=== PATIENT | female | born 1960 | race Caucasian/White ===

== ENCOUNTER 2021-06-02 21:32 | Emergency (ER) | payer OTHER, SELFPAY ==
[2021-06-02 21:47] VITALS: BP 166/92; PULSE 85; RESP 18; TEMP 36.4; O2SAT 99
[2021-06-02 22:47] LABS: Basophils Absolute Auto 0.1 K/mm3 (0.0-0.1); Basophils Percent Auto 0.5 % (0.2-1.2); Eosinophils Absolute Auto 0.3 K/mm3 (0-0.3); Eosinophils Percent Auto 2.5 % (0-4.4); Hematocrit 39.8 % (37.0-47.0); Immature Granulocyte Absolute 0.09 K/mm3 (0.00-0.031); Immature Granulocyte Percent A 0.8 % (0-0.5); Lymphocytes Absolute Auto 3.53 K/mm3 (0.9-3.2); Lymphocytes Percent Auto 29.8 % (18.3-44.2); Mean Corpuscular HGB Conc 32.7 g/dl (32-36); Mean Corpuscular Hemoglobin 29.1 pg (26-34); Mean Corpuscular Volume 89.2 fl (80-100); Mean Platelet Volume 8.5 fl (7.4-10.4); Monocytes Absolute Auto 0.8 K/mm3 (0.1-0.6); Monocytes Percent Auto 6.5 % (2.6-8.5); Neutrophils Absolute Auto 7.1 K/mm3 (1.3-6.7); Neutrophils Percent Auto 59.9 % (45.5-73.1); Platelet Count Result 322 k/mm3 (150-375); Red Blood Count 4.46 M/mm3 (4.2-5.4); Red Cell Distribution Width 12.5 % (11.5-14.5); White Blood Count 11.8 K/mm3 (4.5-10.0)
[2021-06-02 22:56] LABS: Alanine Aminotransferase 14 U/L (4-35); Albumin Level 4.1 g/dL (3.5-5.1); Alkaline Phosphatase 72 U/L (38-126); Anion Gap 7 mmol/L (8-16); Aspartate Amino Transferase 24 U/L (14-36); Bilirubin,Total 0.4 mg/dL (0.2-1.3); Blood Urea Nitrogen 16 mg/dL (7-17); Calcium 8.9 mg/dL (8.4-10.2); Carbon Dioxide 24 mmol/L (22-30); Chloride 109 mmol/L (98-107); Estimated CRCL calculation 61 ml/min; Estimated Glomerular Filt Rate 51; Glucose 103 mg/dL (65-110); Sodium 140 mmol/L (137-145)
[2021-06-02 23:05] LABS: NT Pro B Type Natriuretic Pept 188 pg/mL (5-100)
--- NOTE | 2021-06-02 23:45 | PC.NURSE ---
Pt to the intake desk and states I think im just going to go Let pt know that she is the next one to go back, she states thats ok, i just need to go lay down Pt ambulated to the exit with no difficulty
== END 2021-06-02 21:47 | disposition left against medical advice (07) ==
LOC: ANHED 23:52
PROVIDERS: Emergency Provider Emergency Medicine
DX: R60.9 Edema, unspecified (principal)
CPT/HCPCS: 36415; 80053; 83880; 85025; 99199

== ENCOUNTER 2022-12-12 09:16 | Inpatient (IN) | payer OTHER, SELFPAY ==
[2022-12-12] VITALS (21 sets, daily range): BP systolic 112–178; BP diastolic 53–87; PULSE 66–86; RESP 12–18; TEMP 36.3–36.8; O2SAT 95–100; BMI 41.5
--- NOTE | ~2022-12-12 | XR_ITS ---
EXAMINATION: XR chest 2V DATE: 12/12/2022 10:09 INDICATION: Chest pain. TECHNIQUE: Frontal and lateral views of the chest were obtained. COMPARISON: None. FINDINGS: The chest demonstrates clear lungs without pneumonia, pleural effusion, or pneumothorax. Th e heart size is normal. IMPRESSION: 1. No acute cardiopulmonary disease. Reviewed, dictated and finalized at location A. ON GRAPHICS DESIGNER
--- NOTE | ~2022-12-12 | CT_ITS ---
EXAMINATION: CT brain wo con DATE: 12/14/2022 12:24 INDICATION: Headache. TECHNIQUE: Computed tomography (CT) of the head was performed without intravenous contrast. The mA wa s adjusted according to patient size. Iterative reconstruction technique was employed. The dose-lengt h product was 605.33 mGy-cm. COMPARISON: None FINDINGS: There is no intracranial hemorrhage, acute infarction, or abnormal intracranial mass lesion . The ventricles are normal in size. The orbits are normal. There is mild mucosal thickening in the p aranasal sinuses. There is dependent fluid in the maxillary sinuses. The mastoid air cells are normal . IMPRESSION: 1. Normal brain. Reviewed, dictated and finalized at location A. ERATURE REGULATOR IMPRESSION: 1. Normal brain.
--- NOTE | ~2022-12-12 | CT_ITS ---
EXAMINATION: CTA chest DATE: 12/12/2022 10:46 INDICATION: Chest and back pain. TECHNIQUE: Computed tomographic angiography (CTA) of the chest was performed with 100 mL Omnipaque-35 0 intravenous contrast. Automated exposure control and iterative reconstruction technique were employ ed. The dose-length product was 1137.08 mGy-cm. Maximum intensity projection 3D-reconstructions of th e aorta and other arteries were constructed by the technologist on a separate workstation. COMPARISON: None. FINDINGS: The lungs demonstrate mild atelectasis. No pleural effusion. There are nodules in the thyro id measuring up to 4 mm, and a clinically significant. The heart size is normal. No pericardial effus ion. There is no pulmonary embolus. There is mild aortic atherosclerosis. Thoracic aorta is normal in caliber. No dissection. There is no pulmonary embolus. There is a 3.4 cm cyst in right kidney. There are gallstones in the gallbladder, which is normal in size. There is diffuse hepatic steatosis. Ther e is moderate cervical spondylosis and mild thoracic spondylosis. There are chronic fractures of the bilateral L3 pedicles. IMPRESSION: 1. Mild aortic atherosclerosis. No aneurysm or dissection. 2. Cholelithiasis. Reviewed, dictated and finalized at location A. RARY WRITER
--- NOTE | 2022-12-12 09:18 | ECG_ITS ---
Measurements Intervals [place] Rate: 79 P: 58 UT: 185 QRS: -43 QRSD: 89 T: 55 QT: 349 QTc: 401 Interpretive Statements SINUS RHYTHM LEFT AXIS DEVIATION INCOMPLETE RIGHT BUNDLE BRANCH BLOCK DELAYED PRECORDIAL R/S TRANSITION LOW QRS VOLTAGE IN PRECORDIAL LEADS BASELINE ARTIFACT- I, III, AVR, AVL, AVF BORDERLINE ECG NO PREVIOUS ECG AVAILABLE FOR COMPARISON Electronically Signed On 12-12-2022 14:32:40 LOW PRESSURE BOILER TENDER by Christopher Mckeon D.O.
--- NOTE | 2022-12-12 09:24 | ED.CHESTPAIN ---
HPI - Chest Pain General Chief Complaint: Chest Pain Stated Complaint: I feel like I am having a heart attack Time Seen by Provider: 12/12/22 09:18 History of Present Illness HPI narrative: Patient is a 62-year-old female who presents ER with concerns of having a heart attack. Reports over the last 3 days she has been having pain in her back and her chest. Today she began having pain between her shoulder blades that radiated up her back and into her jaw. It is bilateral. It is burning and aching. She reports worsening with exertion. She also has dyspnea with exertion. No chest pain at this time. No diaphoresis or nausea. No history of [place]. 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 She quit both for years ago. She denies any medical issues at this time. Related Data Home Medications Medication Instructions Recorded Confirmed No Home Medications 12/12/22 12/12/22 Allergies Allergy/AdvReac Type Severity Reaction Status Date / Time No Known Allergies Allergy Verified 12/12/22 09:25 [facility] Past Medical History Medical History (Updated 12/12/22 @ 13:24 by JORGE L Castro) Aortic atherosclerosis Mild, noted on CT on 12/12/2022. Cholelithiasis Noted on CT on 12/12/2022. Surgical History Surgical History (Updated 12/12/22 @ 16:25 by Nolan Mejia MD) No history of previous surgery Family History Family History (Updated 12/12/22 @ 14:00 by JORGE L Castro) Father Acute myocardial infarction Prostate carcinoma Hypertension Mother Hypertension Breast cancer Social History Social History Social History: Surrogate medical decision maker: Code status: Full code. Smoking status: Former smoker Tobacco type: cigarettes Second hand tobacco smoke exposure: No Substance use: former Substance use type: amphetamines Lack of Transportation: No Lack of Food: Never True Current Housing: I Have Housing Concerned About Future Housing: No Difficulty Paying Gas/Electric Bills: No Difficulty Paying for Meds: No Currently Unemployed: No Education: Decline to Answer Difficulty w/ Childcare or Family Care: No Gender identity (if verbalized by the patient): Female Sexual Orientation (if Verbalized by the Patient): Straight or Heterosexual Spiritual care concerns: No Agree to blood products: Yes Exam Narrative: GENERAL: Well-appearing, well-nourished, and in no acute distress. HEAD: Normocephalic, atraumatic. ENT: Mucous membranes moist. NECK: Supple. CHEST: Clear to auscultation. No respiratory distress. HEART: Regular rate and rhythm. No murmur heard. Normal peripheral pulses. ABDOMEN: Soft, nontender, nondistended. Back: No reproducible midline or paraspinal muscular tenderness to the T/L-spine. EXTREMITIES: Normal range of motion. No edema. SKIN: Warm, dry, no rash. NEURO: Alert and oriented x3. PSYCH: Normal mood and affect. Course Course Emergency Course: Patient informed of results. Discussed case with Dr. Burr with cardiology. Recommends CTA to rule out dissection prior to administration of heparin. Patient without dissection so heparin initiated. Admit to hospitalist service with cardiology consulting. Patient aware of diagnosis and treatment plan and the seriousness of her condition. Patient given nitroglycerin for discomfort. Accepted by Dr. Maloney. Vital Signs Vital signs: Vital Signs Temperature 97.4 F L 12/12/22 09:19 Pulse Rate 80 12/12/22 09:19 Respiratory Rate 18 12/12/22 09:19 Blood Pressure 178/81 H 12/12/22 09:19 Pulse Oximetry 95 12/12/22 09:19 Oxygen Delivery Room Air 12/12/22 09:19 Temperature 97.9 F 12/12/22 12:20 Pulse Rate 83 12/12/22 14:00 Respiratory Rate 16 12/12/22 12:20 Blood Pressure 132/53 L 12/12/22 12:20 Pulse Oximetry 100 12/12/22 12:20 Oxygen Delivery Room Air 12/12/22 09:57
[2022-12-12 09:41] LABS: Basophils Absolute Auto 0.1 K/mm3 (0.0-0.1); Basophils Percent Auto 0.5 % (0.2-1.2); Eosinophils Absolute Auto 0.4 K/mm3 (0-0.3); Eosinophils Percent Auto 3.2 % (0-4.4); Hematocrit 43.6 % (37.0-47.0); Hemoglobin 14.3 g/dL (12.0-15.0); Immature Granulocyte Absolute 0.08 K/mm3 (0.00-0.031); Immature Granulocyte Percent A 0.7 % (0-0.5); Lymphocytes Absolute Auto 2.42 K/mm3 (0.9-3.2); Lymphocytes Percent Auto 20.7 % (18.3-44.2); Mean Corpuscular HGB Conc 32.8 g/dl (32-36); Mean Corpuscular Hemoglobin 29.1 pg (26-34); Mean Corpuscular Volume 88.8 fl (80-100); Mean Platelet Volume 8.6 fl (7.4-10.4); Monocytes Absolute Auto 0.6 K/mm3 (0.1-0.6); Monocytes Percent Auto 5.5 % (2.6-8.5); Neutrophils Absolute Auto 8.1 K/mm3 (1.3-6.7); Neutrophils Percent Auto 69.4 % (45.5-73.1); Platelet Count Result 380 k/mm3 (150-375); Red Blood Count 4.91 M/mm3 (4.2-5.4); Red Cell Distribution Width 12.5 % (11.5-14.5); White Blood Count 11.7 K/mm3 (4.5-10.0)
[2022-12-12 09:52] LABS: Alanine Aminotransferase 24 U/L (6-35); Albumin Level 4.4 g/dL (3.5-5.1); Alkaline Phosphatase 80 U/L (38-126); Anion Gap 6 mmol/L (8-16); Aspartate Amino Transferase 30 U/L (14-36); Bilirubin,Total 0.6 mg/dL (0.2-1.3); Blood Urea Nitrogen 15 mg/dL (7-17); Calcium 9.2 mg/dL (8.4-10.2); Carbon Dioxide 27 mmol/L (22-30); Chloride 101 mmol/L (98-107); Estimated CRCL calculation 91 ml/min; Estimated Glomerular Filt Rate > 60; Glucose 116 mg/dL (65-110); Lipase 71 U/L (23-300); Potassium 3.8 mmol/L (3.4-5.0); Prothrombin Time 12.6 Seconds (11.1-14.7); Sodium 134 mmol/L (137-145)
[2022-12-12 09:53] LABS: Partial Thromboplastin Time 32.5 SECONDS (22.3-36.8)
[2022-12-12] MEDS: ASPIRIN 81 MG CHEWABLE TABLET 324 MG PO (09:54)
[2022-12-12 10:07] LABS: Troponin I 0.104 ng/mL (0.000-0.034)
--- NOTE | 2022-12-12 10:21 | ECG_ITS ---
Measurements Intervals [place] Rate: 69 P: 56 MT: 189 QRS: -13 QRSD: 88 T: 46 QT: 376 QTc: 405 Interpretive Statements SINUS RHYTHM RSR' IN V1 OR V2, PROBABLY NORMAL VARIANT DELAYED PRECORDIAL R/S TRANSITION LOW QRS VOLTAGE IN PRECORDIAL LEADS BORDERLINE ECG COMPARED TO ECG 12/12/2022 09:22:53 NO SIGNIFICANT CHANGES Electronically Signed On 12-16-2022 14:13:12 CUT OFF SAWYER by Christopher Mckeon D.O.
[2022-12-12] MEDS: NITROGLYCERIN SL 0.4 MG TABLET SUBLINGUAL (10:55)
[2022-12-12] MEDS: HEPARIN SODIUM 5,000 UNITS/ML VIAL 4000 UNITS IV PUSH ×2 (11:02→18:10)
[2022-12-12] MEDS: HEPARIN SOD/D5W 100 UNITS/ML 25,000 UNITS/250 ML BAG 9 UNITS IV CONT (11:03)
--- NOTE | 2022-12-12 12:11 | ADMGEN ---
This patient, Sherrie Mcknight, was admitted to IMU Room 214-01. Patient/family oriented to hospital policies and general routines including ID bracelet, bed and alarms, visiting hours, pain management, procedures, bathroom and other care routines, personal items, smoking policy, room service/diet, and visiting hours. Information on how to activate the Rapid Response Team has been discussed. Patient/Family are encouraged to report perceived risks to care and to ask questions if they do not understand what they are told or what they should do.
--- NOTE | 2022-12-12 12:45 | PM.IMHP ---
H&P: HPI History of Present Illness Date/Time: 12/12/22 12:45 Chief Complaint: ?I feel like I am having a heart attack.? Narrative: This is a 62-year-old female with GERD and history of methamphetamine user (clean for 4 years) who presented to the emergency department via private vehicle for evaluation of chest pain. Patient provides the following history. She endorses intermittent chest pain over the last several days and it seems to have gotten worse each day. She describes a punching pain in the chest radiating to the back and scapulae. It is worse with exertion and improved with rest. She also has shortness of breath with exertion but that has been a more long-term issue however has improved since she quit smoking last year. Prior to arrival she took 3 Advil without benefit. With further questioning she takes 600 mg of Advil several times a day and she has 3 years. She has occasional heartburn for which she takes Prilosec but she denies recent issues with that however a couple of times during the interview she mentioned having burning discomfort up into her esophagus and neck. Over the weekend she had 2 dark, malodorous stools which has never happened before. She denies abdominal pain though again a couple of times during the interview she indicated to me that she has had an occasional upset stomach. Blood pressure was 178/81 on arrival. EKG showed a sinus rhythm with left axis deviation, delayed precordial R/S transition, low QRS voltage in precordial leads and incomplete right bundle branch block. Her initial troponin was elevated 0.104, she was started on heparin drip, and she has been admitted to IMU for close observation and Cardiology consult. Review of Systems Review of Systems: Twelve systems were reviewed. No fever, chills, or sweats. She reports sinus congestion and headaches. Denies sick contacts. No history of cardiac disease. Denies paroxysmal nocturnal dyspnea, orthopnea, and lower extremity edema. No sensations of racing heart or palpitations. She admits to dyspnea on exertion and she feels that she probably has COPD though her breathing has gotten better since she quit smoking. She admits that she is not very active. No history of DVT or PE. Except as documented, all other systems were reviewed and are negative. [facility] Past Medical History Medical History Aortic atherosclerosis Mild, noted on CT on 12/12/2022. Cholelithiasis Noted on CT on 12/12/2022. Gastroesophageal reflux disease History of methamphetamine use Surgical History Surgical History (Updated 12/12/22 @ 20:27 by Jayna Limon PA-C) History of section Family History Family History Father Acute myocardial infarction Prostate carcinoma Hypertension Mother Hypertension Breast cancer Social History Social History (Updated 12/12/22 @ 20:29 by Jayna Limon PA-C) Social History: Surrogate medical decision maker: Kamran Ledezma, son. Code status: Full code. Smoking status: Former smoker Tobacco type: cigarettes Second hand tobacco smoke exposure: No Alcohol intake: never Substance use: former Substance use type: amphetamines Lack of Transportation: No Lack of Food: Never True Current Housing: I Have Housing Concerned About Future Housing: No Difficulty Paying Gas/Electric Bills: No Difficulty Paying for Meds: No Currently Unemployed: No Education: Decline to Answer Difficulty w/ Childcare or Family Care: No Additional living arrangements comments: . Lives alone in [place]. Has 4 children. Additional occupation/education comments: Retired. Spiritual care concerns: No Agree to blood products: Yes Meds Home Medications and Allergies Home Medications Medication Instructions Recorded Confirmed Type No Home Medications 12/12/22 12/12/22 History Allergies Allergy/AdvReac Type Severity Reaction Stat
[2022-12-12 13:42] LABS: Troponin I 0.228 ng/mL (0.000-0.034)
[2022-12-12] MEDS: HYDROcodone/acetaminophen (*CRX) 5-325 MG TABLET 1 TAB PO (16:20)
[2022-12-12 16:44] LABS: Troponin I 0.328 ng/mL (0.000-0.034)
[2022-12-12] MEDS: MORPHINE SULFATE (*CRX) 4 MG/ML INJ 2 MG IV PUSH (17:03)
[2022-12-12 17:32] LABS: Partial Thromboplastin Time 40.4 SECONDS (22.3-36.8)
[2022-12-12] MEDS: ONDANSETRON INJ 4 MG/2 ML VIAL IV PUSH (20:25)
[2022-12-13] VITALS (25 sets, daily range): BP systolic 79–145; BP diastolic 53–82; PULSE 63–94; RESP 12–20; TEMP 36.6–36.9; O2SAT 93–98
[2022-12-13 01:24] LABS: Partial Thromboplastin Time 73.8 SECONDS (22.3-36.8)
[2022-12-13 06:50] LABS: Basophils Absolute Auto 0.1 K/mm3 (0.0-0.1); Basophils Percent Auto 0.6 % (0.2-1.2); Eosinophils Absolute Auto 0.4 K/mm3 (0-0.3); Eosinophils Percent Auto 3.4 % (0-4.4); Hematocrit 39.3 % (37.0-47.0); Hemoglobin 12.8 g/dL (12.0-15.0); Immature Granulocyte Percent A 0.9 % (0-0.5); Lymphocytes Absolute Auto 2.95 K/mm3 (0.9-3.2); Lymphocytes Percent Auto 25.9 % (18.3-44.2); Mean Corpuscular HGB Conc 32.6 g/dl (32-36); Mean Corpuscular Hemoglobin 29.2 pg (26-34); Mean Corpuscular Volume 89.5 fl (80-100); Mean Platelet Volume 8.8 fl (7.4-10.4); Monocytes Absolute Auto 0.7 K/mm3 (0.1-0.6); Monocytes Percent Auto 6.2 % (2.6-8.5); Neutrophils Absolute Auto 7.2 K/mm3 (1.3-6.7); Platelet Count Result 318 k/mm3 (150-375); Red Blood Count 4.39 M/mm3 (4.2-5.4); Red Cell Distribution Width 12.5 % (11.5-14.5); White Blood Count 11.4 K/mm3 (4.5-10.0)
[2022-12-13 07:07] LABS: Anion Gap 5 mmol/L (8-16); Blood Urea Nitrogen 14 mg/dL (7-17); Calcium 8.4 mg/dL (8.4-10.2); Carbon Dioxide 28 mmol/L (22-30); Chloride 104 mmol/L (98-107); Cholesterol 174 mg/dL (0-200); Estimated CRCL calculation 91 ml/min; Estimated Glomerular Filt Rate > 60; Glucose 122 mg/dL (65-110); HDL Direct 38 mg/dL; Magnesium 1.7 mg/dL (1.6-2.3); Potassium 3.7 mmol/L (3.4-5.0); Sodium 137 mmol/L (137-145); Triglycerides 222 mg/dL (<150)
[2022-12-13 07:18] LABS: LDL Cholesterol Direct 86 mg/dL
[2022-12-13 07:29] LABS: Partial Thromboplastin Time 47.9 SECONDS (22.3-36.8)
[2022-12-13] MEDS: ACETAMINOPHEN 325 MG TABLET 650 MG PO ×2 (08:00→11:49)
[2022-12-13] MEDS: PANTOPRAZOLE 40 MG TABLET PO (08:02)
[2022-12-13] MEDS: ATORVASTATIN 40 MG TABLET PO (08:03)
[2022-12-13] MEDS: HEPARIN SOD/D5W 100 UNITS/ML 25,000 UNITS/250 ML BAG 12 UNITS IV CONT (08:03)
[2022-12-13] MEDS: HEPARIN SODIUM 5,000 UNITS/ML VIAL 4000 UNITS IV PUSH (08:08)
[2022-12-13] MEDS: ASPIRIN 81 MG CHEWABLE TABLET PO (09:49)
--- NOTE | 2022-12-13 09:53 | PM.CNCAR ---
Assessment and Plan Assessment and plan (1) Non-ST elevation myocardial infarction (NSTEMI): Code(s): I21.4 - Non-ST elevation (NSTEMI) myocardial infarction Status: Acute Plan Recommended cardiac cath. Discussed the procedure with the patient, including procedural details, indication for procedure, risks vs benefits, post-procedure care, alternative management strategies. Patient agrees to cath. Will proceed with cath today. Continue Heparin dirip, ASA 81mg QD for now. Continue high-intensity statin. TTE ordered and pending. Further recommendations pending results of cardiac cath. History of Present Illness History of Present Illness Consult date/time: 12/13/22 09:53 Requesting physician: Nolan Mejia MD Consult reason: chest pain Reason For Visit: Nstemi Narrative: We are consulted for NSTEMI. This is a 62-year-old female with a history of GERD and past history of methamphetamine use (clean for 4 years) who presented with chest pain. Patient reports she had anterior chest pain that began a couple days ago. [place] severe. Yesterday, pain was more in her back in between her scapula. Had associated shortness of breath. Patient states pain felt like it progressed since onset. No known past cardiac issues. Patient is currently chest pain free. She does report dark stools over the weekend - was taking 600mg of Advil couple times a day. EKG showed sinus rhythm without ischemic changes. Troponins were 0.104 --> 0.228 --> 0.328. Patient was started on Heparin drip, ASA. Chest CTA negative for PE. Review of Systems Review of Systems: All systems reviewed & are unremarkable except as noted in HPI and below (HPI) [facility] Past Medical History Medical History Aortic atherosclerosis Mild, noted on CT on 12/12/2022. Cholelithiasis Noted on CT on 12/12/2022. Gastroesophageal reflux disease History of methamphetamine use Surgical History Surgical History History of section Family History Family History Father Acute myocardial infarction Prostate carcinoma Hypertension Mother Hypertension Breast cancer Social History Social History Social History: Surrogate medical decision maker: Kamran Ledezma, son. Code status: Full code. Smoking status: Former smoker Tobacco type: cigarettes Second hand tobacco smoke exposure: No Alcohol intake: never Substance use: former Substance use type: amphetamines Lack of Transportation: No Lack of Food: Never True Current Housing: I Have Housing Concerned About Future Housing: No Difficulty Paying Gas/Electric Bills: No Difficulty Paying for Meds: No Currently Unemployed: No Education: Decline to Answer Difficulty w/ Childcare or Family Care: No Additional living arrangements comments: . Lives alone in [place]. Has 4 children. Additional occupation/education comments: Retired. Spiritual care concerns: No Agree to blood products: Yes Meds Home Medications and Allergies Home Medications Medication Instructions Recorded Confirmed Type No Home Medications 12/12/22 12/12/22 History Allergies Allergy/AdvReac Type Severity Reaction Status Date / Time No Known Allergies Allergy Verified 12/12/22 09:25 Vital Signs Vital Signs - 24 hr 12/12/22 09:55 12/12/22 09:57 12/12/22 10:53 Temperature Pulse Rate 70 68 Respiratory Rate 18 18 Blood Pressure 139/87 170/86 H Pulse Oximetry 96 97 96 Oxygen Delivery Room Air Oxygen Flow Rate 12/12/22 10:01 12/12/22 10:53 12/12/22 11:00 Temperature Pulse Rate 76 68 76 Respiratory Rate 15 13 12 Blood Pressure 128/71 170/86 H 152/86 H Pulse Oximetry 97 96 95 Oxygen Delivery Oxygen Flow Rate 12/12/22 11:15 12/12/22 11:30 12/12/22 11:45 Temperature Pulse Rate
--- NOTE | 2022-12-13 10:02 | WPDMODSED ---
Moderate Sedation Note-Pt Data Patient Data Diagnosis: NSTEMI Present Complaint: Chest pain Procedure to be performed/Plan: Coronary angiography, LHC, +/- PCI Allergies Allergy/AdvReac Type Severity Reaction Status Date / Time No Known Allergies Allergy Verified 12/12/22 09:25 Home Medications Medication Instructions Recorded Confirmed Type No Home Medications 12/12/22 12/12/22 History Current Medications: Active Medications Acetaminophen (Acetaminophen 325 Mg Tablet) 650 mg PO Q6H PRN PRN Reason: Mild Pain (1-3) or Fever Last Admin: 12/13/22 08:00 Dose: 650 mg Hydrocodone Bitart/Acetaminophen (Hydrocodone/Acetaminophen (*Crx) 5-325 Mg Tablet) 1 tab PO Q6H PRN PRN Reason: Pain Rated 4-6 Last Admin: 12/12/22 16:20 Dose: 1 tab Aspirin (Aspirin 81 Mg Chewable Tablet) 81 mg PO DAILY@0800 [facility] Last Admin: 12/13/22 09:49 Dose: 81 mg Atorvastatin Calcium (Atorvastatin 40 Mg Tablet) 40 mg PO DAILY [facility] Last Admin: 12/13/22 08:03 Dose: 40 mg Heparin Sodium (Porcine) (Heparin Sodium 5,000 Units/Ml Vial) 4,000 units IV PUSH PRN PRN PRN Reason: aPTT less than 55 seconds Last Admin: 12/13/22 08:08 Dose: 4,000 units Heparin Sodium (Porcine) (Heparin Sodium 5,000 Units/Ml Vial) 3,000 units IV PUSH PRN PRN PRN Reason: aPTT 55 - 70 seconds Heparin Sodium/Dextrose (Heparin Sodium/D5w 100 Units/Ml) 25,000 units in 250 mls @ 0 mls/hr IV CONT .Q0M [facility]; Protocol Last Titration: 12/13/22 09:49 Dose: 0 units/hr, 0 mls/hr Morphine Sulfate (Morphine Sulfate (*Crx) 4 Mg/Ml Inj) 2 mg IV PUSH Q4H PRN PRN Reason: Pain Rated 7-10 Last Admin: 12/12/22 17:03 Dose: 2 mg Nitroglycerin (Nitroglycerin Sl 0.4 Mg Tablet) 0.4 mg SUBLINGUAL Q5MIN PRN PRN Reason: Chest Pain Ondansetron HCl (Ondansetron Inj 4 Mg/2 Ml Vial) 4 mg IV PUSH Q4H PRN PRN Reason: Nausea Last Admin: 12/12/22 20:25 Dose: 4 mg Pantoprazole Sodium (Pantoprazole 40 Mg Tablet) 40 mg PO QAM SYED Last Admin: 12/13/22 08:02 Dose: 40 mg Perflutren Lipid Microsphere (Perflutren Lipid Microspheres 1.5 Ml Vial Diluted To 10 Ml Total Volume) 0 ml IV PUSH ONCE PRN; Protocol PRN Reason: adequate visualization Stop: 12/14/22 12:39 Sedation/Anesthesia: No previous sedation/anesthesia problems (including family history). [facility] Past Medical History Medical History Aortic atherosclerosis Mild, noted on CT on 12/12/2022. Cholelithiasis Noted on CT on 12/12/2022. Gastroesophageal reflux disease History of methamphetamine use Surgical History Surgical History History of section Family History Family History Father Acute myocardial infarction Prostate carcinoma Hypertension Mother Hypertension Breast cancer Social History Social History Social History: Surrogate medical decision maker: Kamran Ledezma, son. Code status: Full code. Smoking status: Former smoker Tobacco type: cigarettes Second hand tobacco smoke exposure: No Alcohol intake: never Substance use: former Substance use type: amphetamines Lack of Transportation: No Lack of Food: Never True Current Housing: I Have Housing Concerned About Future Housing: No Difficulty Paying Gas/Electric Bills: No Difficulty Paying for Meds: No Currently Unemployed: No Education: Decline to Answer Difficulty w/ Childcare or Family Care: No Additional living arrangements comments: . Lives alone in [place]. Has 4 children. Additional occupation/education comments: Retired. Spiritual care concerns: No Agree to blood products: Yes Mod Sed Physical Exam Physical Exam Pre Procedural Exam: Normal: Appearance, Lungs, Heart Rate, Heart Rhythm, Neuro Exam, Abdomen, Extremities and Skin Hours since solid foods: 12 Hours since liquid intake: 8 Mallampati Class
--- NOTE | 2022-12-13 10:02 | WPDCARDPROC ---
Cardiac Cath Procedure Note Date of procedure:: 12/13/22 Performing physician:: CATHETERIZATION LABORATORY REPORT Procedure Date: 12/13/2022 Cereal Maker: Opal Carvalho M.D., [facility]? Referring Physician: Opal Carvalho M.D. ? Anesthesia: Versed and Fentanyl were ordered and given in my presence at 10:08, procedure ended at 11:15. Supervision of nurse monitored moderate sedation with Versed and Fentanyl was provided for 67 minutes. Total of Versed 4mg, Fentanyl 100mcg, Morphine 2mg were administered by the Scientific Writer RN Ignacia Smith. Pre-op Diagnosis: NSTEMI Post-op Diagnosis: 1. Significant 99% mid LAD stenosis s/p successful PCI with GONZALEZ x 1. 2. Mild proximal-mid RCA disease 3. Elevated left ventricular end-diastolic pressure of 27mmHg Procedure(s): 1. Moderate sedation 2. Ultrasound-guided access of the right radial artery 3. Coronary angiography 4. Left heart cath 5. PCI of the mid LAD with GONZALEZ x 1. Access Site: Right radial artery Brief History and Clinical Indications: Patient is a 62 year old female referred for cardiac cath for NSTEMI. All risks, benefits and alternatives to left heart catheterization with or without percutaneous coronary intervention was discussed at length with the patient. Risk of complications including but not limited to bleeding, infection, arrhythmia, stroke, worsening kidney function, blood loss, groin hematoma, limb loss, emergency coronary artery bypass grafting, and even were discussed with the patient and all questions were answered. The patient understood and wished to proceed. Time out called, patient name, date of , medical record number, allergies, procedure performed, identify Cereal Maker, patient and staff member concurred with accurate data, procedure carried on. Findings: LEFT HEART CATHETERIZATION FINDINGS: 1. Left main: The left main coronary artery is widely patent without any significant obstructive disease. 2. Left anterior descending: The proximal LAD has mild luminal irregularities. The mid LAD at the bifurcation of the second septal branch has a significant focal 99% stenosis. Remainder of the LAD has mild luminal irregularities. The diagonal branch is of small caliber and without any significant obstructive angiographic disease. 3. Left circumflex: The proximal LCX has mild luminal irregularities. The mid-distal LCX has mild diffuse disease without any significant obstructive angiographic disease. OM branch has mild luminal irregularities. 4. Right coronary artery: The RCA is the dominant vessel. The proximal RCA has mild disease of 40-50%. The mid RCA has mild diffuse disease of up to 30%. The distal RCA has mild luminal irregularities. The RPDA and RPLV are without any significant obstructive angiographic disease. 5. Left ventricle: A. End-diastolic pressure 27mmHg. B. LV gram deferred. C. No significant gradient across aortic valve on catheter pullback. Description of Procedure: Informed consent signed and placed in the chart. Patient transferred to warehouse laborer room. Prepped and draped in usual sterile fashion. 2% lidocaine injected subcutaneously in right wrist area. 22-gauge venipuncture catheter used to access the right radial artery with the Seldinger technique. 6-FR slender sheath placed in right radial artery. Nitroglycerine and Verapamil were given intraarterial through the sheath. Versacore wire advanced under fluoroscopy 5F Tig 4 diagnostic catheter engaged Left Main Coronary Artery. 5F Tig 4 diagnostic catheter engaged Right Coronary Artery Multiple orthogonal angiogram obtained and reviewed 5F Pigtail diagnostic catheter crossed aortic valve to obtain LVEDP, LV angiogram deferred. Hemostasis was achieved by application of TR band. ? Procedure Description for PCI: Heparin was used for anticoagulation (ACT maintained above 250) Patient loaded with heparin at 70 units/kg. 6F FL4 guide catheter was used to intubate the left main. 0.014
--- NOTE | 2022-12-13 10:15 | PC.NURSE ---
[id number] - to cardiac labor expediter accompanied by RN's
[2022-12-13] MEDS: ONDANSETRON INJ 4 MG/2 ML VIAL IV PUSH (12:22)
[2022-12-13 12:45] LABS: Hemoglobin A1C 5.6 % (<5.7)
[2022-12-13] MEDS: SODIUM CHLORIDE 0.9% IV 1,000 ML 125 ML IV CONT (12:45)
--- NOTE | 2022-12-13 13:17 | PM.IMPN ---
Progress Note: A&P Assessment and Plan (1) Non-ST elevation myocardial infarction (NSTEMI): Code(s): I21.4 - Non-ST elevation (NSTEMI) myocardial infarction Status: Acute (2) CAD (coronary artery disease): Code(s): I25.10 - Atherosclerotic heart disease of [place] coronary artery without angina pectoris Status: Acute (3) Gastroesophageal reflux disease: Code(s): K21.9 - Gastro-esophageal reflux disease without esophagitis Status: Acute (4) Dark stools: Code(s): R19.5 - Other fecal abnormalities Status: Acute (5) Cholelithiasis: Code(s): K80.20 - Calculus of gallbladder without cholecystitis without obstruction Status: Acute Plan The patient presented to the ED with complaints of intermittent chest and back discomfort over the past week and a half which seems to be worse with exertion with associated SOB. CTA was negative for PE. CT did show cholelithiasis but LFTs and Lipase normal. EKG does not show any acute ST segment changes though her troponins climbed to 0.33. She was started on a heparin drip in the ED. She was started on ASA. She underwent left heart catheterization earlier today and found to have a 99% mid LAD stenosis s/p successful PCI with GONZALEZ placement. Also noted was mild proximal-mid RCA disease and elevated LV end-diastolic pressure. She has had anxiety with headache and chest pain lorraine-procedure but symptoms improving. Continue DAPT with Plavix and ASA. Contineu high dose Lipitor. Toprol XL also added. Protonix started. Hgb normal. Stool guaiac ordered. Continue to monitor on tele. Subjective Date/time seen: 12/13/22 13:17 Interval history: 62yo female with hx of methamphetamine use here for chest pain. She is back from her [facility]. She states it was a 'terrifying' experience associated with headche an chest pain. RN states patient had episode on n/v in the [employer] with a vagal episode of HoTN and bradycardia. Patient states the chest pain is easing off. She has been given Tylenol and Zofran. Exam Narrative: AF 123/67 68 16 97% ra Gen - NARD Chest - clear anteriorly and in the flanks. nml RR CV - RRR S1/S2 Abd - Soft, NT/ND, Positive BS Ext - No pedal edema. Psych - mildly anxious. nml sensation to the right hand Skin - Warm and dry Objective Data Vital Signs Vital Signs: Vital Signs - 24 hr 12/12/22 14:00 12/12/22 16:00 12/12/22 16:00 Temperature 98.3 F Pulse Rate 83 82 82 Respiratory Rate 14 Blood Pressure 128/65 Pulse Oximetry 98 Oxygen Delivery Oxygen Flow Rate 12/12/22 16:00 12/12/22 18:00 12/12/22 20:00 Temperature 97.8 F Pulse Rate 82 80 79 Respiratory Rate 16 18 Blood Pressure 122/76 Pulse Oximetry 100 96 Oxygen Delivery Nasal Cannula Oxygen Flow Rate 2 12/12/22 20:00 12/12/22 20:00 12/12/22 22:00 Temperature Pulse Rate 80 75 Respiratory Rate Blood Pressure Pulse Oximetry Oxygen Delivery Room Air Oxygen Flow Rate 12/12/22 23:06 12/13/22 00:00 12/13/22 00:00 Temperature 97.8 F Pulse Rate 80 70 Respiratory Rate 18 Blood Pressure 112/60 Pulse Oximetry 99 Oxygen Delivery Room Air Oxygen Flow Rate 12/13/22 02:00 12/13/22 03:56 12/13/22 04:00 Temperature Pulse Rate 66 63 Respiratory Rate Blood Pressure Pulse Oximetry Oxygen Delivery Room Air Oxygen Flow Rate 12/13/22 04:00 12/13/22 06:00 12/13/22 07:55 Temperature 97.8 F 97.9 F Pulse Rate 90 94 70 Respiratory Rate 18 16 Blood Pressure 130/74 127/63 Pulse Oximetry 98 97 Oxygen Delivery Oxygen Flow Rate 12/13/22 08:00 12/13/22 08:00 12/13/22 10:00 Temperature Pulse Rate 72 74 Respiratory Rate Blood Pressure Pulse Oximetry 97 Oxygen Delivery Room Air Oxygen Flow Rate 12/13/22 11:38 12/13/22 12:00 12/13/22 12:15 Temperature Pulse Rate 80 65 64 Respiratory Rate 13 Blood Pressure 143/82 H 110/82 79/53 L Pulse Ox
[2022-12-13] MEDS: METOPROLOL SUCCINATE EXT REL 25 MG TABCR PO (14:58)
[2022-12-13 15:08] LABS: Activated Clotting Time 378 SEC (74-137)
[2022-12-13 15:08] LABS: Activated Clotting Time 203 SEC (74-137)
[2022-12-13 15:08] LABS: Activated Clotting Time 179 SEC (74-137)
--- NOTE | 2022-12-13 16:21 | PC.NURSE ---
1445- pt returned to room post cardiac cath-pt a/o x3- denies chest pain - vss- monitor SR . Right Radial with dressing CDI. Right forearm on armboard. post op activity discussed with pt - pt acknowledged
[2022-12-14] VITALS (10 sets, daily range): BP systolic 115–132; BP diastolic 52–59; PULSE 65–91; RESP 18–20; TEMP 36.1–36.7; O2SAT 95–99
[2022-12-14] MEDS: ACETAMINOPHEN 325 MG TABLET 650 MG PO ×2 (01:09→09:43)
--- NOTE | 2022-12-14 09:20 | PC.NURSE ---
Cardiopulmonary Rehab Services flyer was given to patient in admission folder.
[2022-12-14] MEDS: PERFLUTREN LIPID MICROSPHERES 1.5 ML VIAL DILUTED TO 10 ML TOTAL VOLUME IV PUSH (09:23)
--- NOTE | 2022-12-14 09:23 | IVDEFINITY ---
Prior to administration of IV Definity the patient was educated on the risks and benefits of the imaging enhancing agent including potential adverse side effects. The patient verbalized understanding. Allergies were verified. No exclusion criteria were identified and at least one of the following inclusion criteria were met: 1) physician request, 2) patient technically difficult to image (per the [place] [employer]chocardi[employer] guidelines of two or more segments not discernable within the apical view), or 3) questionable left ventricular function. ?
[2022-12-14] MEDS: ASPIRIN 81 MG CHEWABLE TABLET PO (09:43)
[2022-12-14] MEDS: CLOPIDOGREL BISULFATE 75 MG TABLET PO (09:44)
[2022-12-14] MEDS: METOPROLOL SUCCINATE EXT REL 25 MG TABCR PO (09:44)
[2022-12-14] MEDS: PANTOPRAZOLE 40 MG TABLET PO (09:44)
[2022-12-14] MEDS: ATORVASTATIN 40 MG TABLET 80 MG PO (11:02)
--- NOTE | 2022-12-14 12:39 | ECHO_ITS ---
Patient Info Name: Sherrie Mcknight Age: 62 years : 1960 Gender: Female Ht: 65 in Wt: 246 lbs BSA: 2.32 m2 HR: 65 bpm BP: 130 / 74 mmHg Heart Rhythm: Sinus Rhythm Technical Quality: Fair Exam Date: 12/14/2022 8:46 AM Exam Location: [facility] Card Pulmonary Patient Status: Inpatient Admit Date: 12/12/2022 Staff Ordering Physician: Jayna Limon PA-C Automatic Spinning Lathe Setter: Marga Savage RDCS Attending Provider: Star Maloney MD Referring Physician: Braxton CABAN; Exam Type: CA echo dop color flow w con Study Info Indications - NSTEMI Complete two-dimensional, color flow and Doppler transthoracic echocardiogram is performed with contrast to opacify the left ventricle and to improve the deliniation of the left ventricle endocardial borders. Contrast/Agitated Saline Contrast/Ag. Saline: Definity Amount: 3.00 ml Administered By: Marga Savage RDCS Existing IV Access: Yes IV Access Condition: patent with no signs of infiltration Summary 1. Normal left ventricular size with borderline concentric hypertrophy. Overall good systolic function with a focal area of mid septal hypokinesis. The ejection fraction calculated to be 68%, visually 60-65%. Grade 2 diastolic dysfunction is noted. 2. No pulmonary hypertension, estimated pulmonary arterial systolic pressure is 28 mmHg. 3. No significant valve disease. 4. Technically difficult study due to body habitus, IV definity echo contrast used. 5. Normal sinus rhythm. Left Ventricle Left ventricular chamber dimension is normal. Left ventricular systolic function is normal, estimated at 60-65%. There is mildly increased left ventricular wall thickness. Left ventricular septal wall motion is normal. The left ventricular diastolic function is grade II diastolic dysfunction. Right Ventricle Right ventricular chamber dimension is normal. Right ventricular systolic function is normal. Left Atria Left atrial chamber dimension is normal. Right Atria Right atrial chamber dimension is normal. Aortic Valve The aortic valve is trileaflet. There is no aortic valve sclerosis. There is no aortic valve stenosis. There is no aortic valve regurgitation. Pulmonic Valve The pulmonic valve is normal. There is no pulmonic valve stenosis. There is no pulmonic regurgitation. Mitral Valve The mitral valve has normal leaflets. There is no mitral valve stenosis. There is trace mitral valve regurgitation. The mitral valve annulus is mildly calcified. Tricuspid Valve The tricuspid valve leaflets are normal. There is no significant tricuspid valve stenosis. There is trace tricuspid valve regurgitation. No pulmonary hypertension, estimated pulmonary arterial systolic pressure is 28 mmHg. Pericardium/Pleural The pericardium appears normal. There is no pericardial effusion. Inferior Vena Cava Not well visualized inferior vena cava with >50% collapse upon inspiration consistent with Empty right atrial pressure, 10 mmHg. Aorta The aortic root size at the sinus of Valsalva is normal. The prox ascending aorta size is normal. Left Ventricular Outflow Tract Name Value Normal LVOT 2D LVOT Diam
--- NOTE | 2022-12-14 13:03 | PM.PNCARD ---
Progress Note: A&P Assessment and Plan (1) Non-ST elevation myocardial infarction (NSTEMI): Code(s): I21.4 - Non-ST elevation (NSTEMI) myocardial infarction Status: Acute Plan Cardiac cath showed: 1. Significant 99% mid LAD stenosis s/p successful PCI with GONZALEZ x 1. 2. Mild proximal-mid RCA disease 3. Elevated left ventricular end-diastolic pressure of 27mmHg DAPT for 1 year followed by ASA indefinitely. High-intensity statin. Beta-alison. Referral to cardiac rehab placed. Continue aggressive medical therapy and risk factor modification. Echocardiogram 12/14 showed LVEF 60-65%, grade 2 diastolic dysfunction, no significant valvular disease. No further inpatient cardiac needs. Okay for discharge from our standpoint. Will arrange follow up for patient to see us in clinic. Subjective Date/time seen: 12/14/22 13:03 Interval history: Reason for visit: NSTEMI HPI: This is a 62-year-old female with a history of GERD and past history of methamphetamine use (clean for 4 years) who presented with chest pain. Patient reports she had anterior chest pain that began a couple days ago. [place] severe. Yesterday, pain was more in her back in between her scapula. Had associated shortness of breath. Patient states pain felt like it progressed since onset. No known past cardiac issues. Patient is currently chest pain free. She does report dark stools over the weekend - was taking 600mg of Advil couple times a day. EKG showed sinus rhythm without ischemic changes. Troponins were 0.104 --> 0.228 --> 0.328. Patient was started on Heparin drip, ASA. Chest CTA negative for PE. Date of service 12/14: Doing well. No cardiac symptoms. Feeling much better now. Review of Systems Review of Systems: 8 point ROS obtained. Negative, unless stated in HPI. Exam Const: General: comfortable and no acute distress HENMT: Mouth: Yes moist mucous membranes Eyes: General: appearance normal, both eyes and all related structures Sclera: sclerae normal Neck: Neck: supple Resp: Effort & Inspection: normal respiratory effort Auscultation: clear to auscultation bilaterally Cardio: Rate: regular rate Rhythm: regular rhythm Heart sounds: no murmurs GI: GI Palp: Yes Soft to palpation and No Tenderness to palpation present (GI) Skin: General skin exam: normal color Neuro: Speech: normal speech Extrem: General: normal to inspection Psych: Mental Status: mental status grossly normal Affect: normal affect Objective Data Vital Signs Vital Signs: Vital Signs - 24 hr 12/13/22 13:20 12/13/22 13:30 12/13/22 14:00 Temperature Pulse Rate 78 73 70 Respiratory Rate 16 14 12 Blood Pressure 107/54 L 114/62 130/78 Pulse Oximetry 95 96 94 Oxygen Delivery Room Air Room Air Room Air 12/13/22 14:58 12/13/22 14:23 12/13/22 15:00 Temperature 36.6 C Pulse Rate 74 70 73 Respiratory Rate 13 20 Blood Pressure 106/63 117/58 L Pulse Oximetry 93 94 Oxygen Delivery Room Air 12/13/22 16:00 12/13/22 16:00 12/13/22 16:00 Temperature 36.9 C Pulse Rate 89 79 Respiratory Rate 16 Blood Pressure 114/67 Pulse Oximetry 96 Oxygen Delivery Room Air 12/13/22 18:00 12/13/22 17:00 12/13/22 18:00 Temperature 36.7 C Pulse Rate 77 77 75 Respiratory Rate 16 Blood Pressure 128/73 Pulse Oximetry 94 Oxygen Delivery 12/13/22 20:00 12/14/22 00:00 12/14/22 01:09 Temperature 36.6 C 36.4 C L 36.7 C Pulse Rate 66 73 Respiratory Rate 14 18 Blood Pressure 143/63 H 126/52 L Pulse Oximetry 98 95 Oxygen Delivery 12/13/22 20:00 12/13/22 22:00 12/14/22 00:00 Temperature Pulse Rate 66 68 84 Respiratory Rate Blood Pressure Pulse Oximetry Oxygen Delivery 12/14/22 02:00 12/14/22 04:00 12/14/22 05:03 Temperature Pulse Rate 71 66 68 Respiratory Rate Blood Pressure Pulse Oximetry Oxygen Delivery 12/14/22 04:00 12/14/22 08:00 12/14/22 09:44 Temperature 36.1 C L 36.3 C L
--- NOTE | 2022-12-14 14:10 | PM.DS ---
DS: Admitting Diagnosis Discharge Date 12/14/22 Admitting Diagnosis Chest pain DS: Discharge Diagnosis Discharge Diagnosis (1) Non-ST elevation myocardial infarction (NSTEMI): Code(s): I21.4 - Non-ST elevation (NSTEMI) myocardial infarction Status: Acute (2) CAD (coronary artery disease): Code(s): I25.10 - Atherosclerotic heart disease of [place] coronary artery without angina pectoris Status: Acute (3) Gastroesophageal reflux disease: Code(s): K21.9 - Gastro-esophageal reflux disease without esophagitis Status: Acute (4) Dark stools: Code(s): R19.5 - Other fecal abnormalities Status: Acute (5) Cholelithiasis: Code(s): K80.20 - Calculus of gallbladder without cholecystitis without obstruction Status: Acute DS: Summary Hospital Course Reason for hospitalization: 62yo female with hx of methamphetamine use here for chest pain. Please see H&P for details Hospital Course: The patient presented to the ED with complaints of intermittent chest and back discomfort over the past week and a half which seems to be worse with exertion with associated SOB. CTA was negative for PE. CT did show cholelithiasis but LFTs and Lipase normal. EKG does not show any acute ST segment changes though her troponins climbed to 0.33. She was started on a heparin drip in the ED. She was started on ASA. She underwent left heart catheterization 12/13/22 and found to have a 99% mid LAD stenosis s/p successful PCI with GONZALEZ placement. Also noted was mild proximal-mid RCA disease and elevated LV end-diastolic pressure. She has had anxiety with headache and chest pain lorraine-procedure but symptoms improving. Head CT showing no acute process. Treated with Plavix, ASA, high dose Lipitor and Toprol XL. Echo showing EF 60-65% with Grade 2 diastolic dysfunction. She overall did well and was able to be discharged home on 12/14/22 Status at Discharge Cognitive/behavioral status at discharge: stable Time Spent with Patient Time attestation: Total time spent providing and/or coordinating discharge services: 35 minutes Time spent: Greater than 30 minutes Exam Narrative: AF 132/55 79 20 99% ra Gen - NARD Chest - CTA bilaterally CV - RRR S1/S2 Abd - Soft, NT/ND, Positive BS Ext - No pedal edema. Psych - normal mood, odd affect Skin - Warm and dry DS: Data Data Completed and Pending Labs on day of discharge: Labs from last 24 hours 12/13/22 12/13/22 12/13/22 11:13 10:38 10:28 Activ Coag Time Toni 203 H 378 H 179 H Discharge Plan Discharge Attending physician on discharge: Justin Molina Consulting providers: David Burr Discharging Clinician: Justin Molina Anticipated Discharge Date/Time: 12/14/22 14:14 Patient Disposition: Home, Self-Care Activity: as tolerated Diet: heart healthy Discharge Instructions: Contact your doctor or call 911 and come to the Emergency Room if you have any fevers, recurrent chest pain or other worrisome symptoms. Avoid NSAIDs (ibuprofen, naproxen, Aleve). Tylenol is safe to take. Follow-up with your primary care provider in 1-2 weeks. Please call for appointment. Follow-up with Cardiology in 4-6 weeks. Please call for an appointment. Thank you for using [facility] for your health care needs. Patient Instructions: Antibiotic Form, Heparin (By injection), Heart Attack (DC), Chest Pain (DC), Pain Management (DC), High Troponin Levels (GEN) Stand Alone Forms: General Discharge Information Follow-up/Referrals: David Burr MD [Physician] - Call for Appointment Elia Escamilla MD [Primary Care Provider] - Call for Appointment Discharge Medications: New atorvastatin 40 mg Tablet 80 mg PO DAILY Qty: 60 2RF metoprolol succinate [Toprol XL] 25 mg Tablet Extended Release 24 Hr 25 mg PO QAM Qty: 30 2RF nitroglycerin [Nitrostat] 0.4 mg Tablet, Sublingual 0.4 mg subling
== END 2022-12-14 15:30 | disposition home or self-care (01) | DRG 174 ==
LOC: ANHED 11:22 → ANHIMU 11:43
PROVIDERS: Internal Medicine; Physician Assistant; Admitting Provider Family Medicine; Emergency Provider Emergency Medicine; PCP Internal Medicine; Visit Provider Internal Medicine
PROC: 4A023N7 Measurement of Cardiac Sampling and Pressure, Left Heart, Percutaneous Approach (ICD-10-PCS; CPT 93452; principal; 2022-12-13 10:30)
PROC: 027034Z Dilation of Coronary Artery, One Artery with Drug-eluting Intraluminal Device, Percutaneous Approach (ICD-10-PCS; 2022-12-13 10:30)
DX: I21.4 Non-ST elevation (NSTEMI) myocardial infarction (principal); F15.21 Other stimulant dependence, in remission; K21.9 Gastro-esophageal reflux disease without esophagitis; K80.20 Calculus of gallbladder without cholecystitis without obstruction; I51.89 Other ill-defined heart diseases; F41.9 Anxiety disorder, unspecified; R51.9 Headache, unspecified
CPT/HCPCS: 36415; 70450; 71046; 71275; 80048; 80053; 80061; 83036; 83690; 83735; 84484; 85025; 85610; 85730; 93005; 93458; 96365; 96366; 96374; 96375; 99285; A9270; C1725; C1769; C1874; C1887; C1894; C8929; C9600; G0378; G0379; J1644; J1940; J2250; J2270; J2405; J3010; J7030; J7040; Q9957; Q9967

== ENCOUNTER 2022-12-24 15:47 | Emergency (ER) | payer OTHER, SELFPAY ==
--- NOTE | ~2022-12-24 | XR_ITS ---
EXAMINATION: XR chest 2V 12/24/2022 17:31 INDICATION: Chest pain. PROCEDURE: 2 view chest COMPARISON: 12/12/2022 FINDINGS: The lungs are clear. The cardiomediastinal silhouette is within normal limits. There are no pleural effusions. There is no pneumothorax suspected. IMPRESSION: 1: NO ACUTE CARDIOPULMONARY DISEASE. Reviewed, dictated and finalized at location A.
[2022-12-24 15:53] VITALS: BP 130/67; PULSE 71; RESP 16; TEMP 36.4; O2SAT 98
--- NOTE | 2022-12-24 15:58 | ECG_ITS ---
Measurements Intervals [place] Rate: 68 P: 48 ND: 186 QRS: -9 QRSD: 91 T: 50 QT: 384 QTc: 409 Interpretive Statements SINUS RHYTHM CANNOT RULE OUT SEPTAL INFARCT, AGE INDETERMINATE ABNORMAL ECG COMPARED TO ECG 12/12/2022 10:21:39 MYOCARDIAL INFARCT FINDING NOW PRESENT Electronically Signed On 12-24-2022 16:05:42 CDT by Christopher Mckeon D.O.
[2022-12-24 16:20] LABS: Basophils Absolute Auto 0.1 K/mm3 (0.0-0.1); Basophils Percent Auto 0.4 % (0.2-1.2); Eosinophils Absolute Auto 0.2 K/mm3 (0-0.3); Eosinophils Percent Auto 1.5 % (0-4.4); Hematocrit 39.5 % (37.0-47.0); Hemoglobin 13.1 g/dL (12.0-15.0); Immature Granulocyte Percent A 0.7 % (0-0.5); Lymphocytes Absolute Auto 2.56 K/mm3 (0.9-3.2); Lymphocytes Percent Auto 16.7 % (18.3-44.2); Mean Corpuscular HGB Conc 33.2 g/dl (32-36); Mean Corpuscular Hemoglobin 28.6 pg (26-34); Mean Corpuscular Volume 86.2 fl (80-100); Mean Platelet Volume 8.9 fl (7.4-10.4); Monocytes Absolute Auto 0.9 K/mm3 (0.1-0.6); Neutrophils Absolute Auto 11.4 K/mm3 (1.3-6.7); Neutrophils Percent Auto 74.7 % (45.5-73.1); Platelet Count Result 352 k/mm3 (150-375); Red Blood Count 4.58 M/mm3 (4.2-5.4); Red Cell Distribution Width 12.5 % (11.5-14.5); White Blood Count 15.3 K/mm3 (4.5-10.0)
[2022-12-24 16:27] LABS: Alanine Aminotransferase 21 U/L (6-35); Albumin Level 4.3 g/dL (3.5-5.1); Alkaline Phosphatase 91 U/L (38-126); Anion Gap 3 mmol/L (8-16); Aspartate Amino Transferase 31 U/L (14-36); Bilirubin,Total 0.5 mg/dL (0.2-1.3); Blood Urea Nitrogen 15 mg/dL (7-17); Calcium 9.1 mg/dL (8.4-10.2); Carbon Dioxide 26 mmol/L (22-30); Chloride 104 mmol/L (98-107); Estimated CRCL calculation 92 ml/min; Estimated Glomerular Filt Rate > 60; Glucose 102 mg/dL (65-110); Lipase 82 U/L (23-300); Potassium 4.1 mmol/L (3.4-5.0); Sodium 133 mmol/L (137-145)
[2022-12-24 16:28] LABS: Partial Thromboplastin Time 33.3 SECONDS (22.3-36.8)
[2022-12-24 16:41] LABS: Appearance Urine Clear (Clear); Bilirubin Urine Negative (Negative); Blood Urine Negative (Negative); Color Urine Yellow (Yellow); Glucose Urine UA Negative (Negative); Ketones Urine Negative (Negative); Leukocyte Esterase Ur Negative LEU/UL (Negative); Nitrate Urine Negative (Negative); Protein Urine Negative (Negative); Specific Grav Ur 1.008 (1.001-1.035); Urobilinogen Urine 0.2 mg/dL (<2.0)
[2022-12-24 16:47] LABS: Troponin I 0.042 ng/mL (0.000-0.034)
[2022-12-24 16:48] VITALS: BP 142/66; PULSE 73; RESP 19; TEMP 36.4; O2SAT 98
[2022-12-24 16:49] VITALS: BP 142/66; PULSE 73; RESP 19; O2SAT 99
--- NOTE | 2022-12-24 17:01 | ED.GENADULT ---
HPI - General Adult General Chief complaint: Recheck/Abnormal Lab/Rx Stated complaint: high blood pressure Time Seen by Provider: 12/24/22 16:42 History of Present Illness HPI narrative: Patient is a 62-year-old female who presents ER from her primary care physician office with concern of lightheadedness and MN. Patient recently had a myocardial infarction couple weeks ago. She had a stent placed here. She has been compliant with home medication. She went to see her PCP today and was having some lightheadedness and headache. PCP felt patient should be reevaluated regarding patient having original MRI that she had been having some headache and lightheadedness as well but at that time she also been experiencing back pain which is not experiencing at this time. She does note she has exertional fatigue though attributes that to her recent MN. She has not recently had exertional chest pain. No mopped assist. No leg swelling. Related Data Allergies Allergy/AdvReac Type Severity Reaction Status Date / Time No Known Allergies Allergy Verified 12/24/22 15:53 Review of Systems Review of Systems: All systems reviewed & are unremarkable except as noted in HPI and below Constitutional: Constitutional: Denies chills, Denies fatigue and Denies fever(s) ENT: Denies nasal congestion and Denies sore throat Cardiovascular: Cardiovascular: Denies chest pain, Denies rapid heart rate and Denies radiating jaw, neck or arm pain Respiratory: Respiratory: Denies cough Comments: Mild shortness of breath with exertion Gastrointestinal: Gastrointestinal: Denies abdominal pain, Denies nausea and Denies vomiting Neurologic: Reports dizziness, Reports headache(s), Denies focal weakness and Denies numbness PMFSH Past Medical History Medical History Aortic atherosclerosis Mild, noted on CT on 12/12/2022. Cholelithiasis Noted on CT on 12/12/2022. Gastroesophageal reflux disease History of methamphetamine use Surgical History Surgical History History of section Family History Family History Father Acute myocardial infarction Prostate carcinoma Hypertension Mother Hypertension Breast cancer Social History Social History Social History: Surrogate medical decision maker: Kamran Ledezma, son. Code status: Full code. Smoking status: Former smoker Tobacco type: cigarettes Second hand tobacco smoke exposure: No Alcohol intake: never Substance use: former Substance use type: amphetamines Lack of Transportation: No Lack of Food: Never True Current Housing: I Have Housing Concerned About Future Housing: No Difficulty Paying Gas/Electric Bills: No Difficulty Paying for Meds: No Currently Unemployed: No Education: Decline to Answer Difficulty w/ Childcare or Family Care: No Additional living arrangements comments: . Lives alone in [place]. Has 4 children. Additional occupation/education comments: Retired. Spiritual care concerns: No Agree to blood products: Yes Exam Narrative: GENERAL: Well-appearing, well-nourished, and in no acute distress. HEAD: Normocephalic, atraumatic. EYES: PERRL and EOMI. ENT: Mucous membranes moist. CHEST: Clear to auscultation. No respiratory distress. HEART: Regular rate and rhythm. Normal peripheral pulses. ABDOMEN: Soft, nontender, nondistended. EXTREMITIES: Normal range of motion. No edema. SKIN: Warm, dry, no rash. NEURO: Alert and oriented x3. PSYCH: Normal mood and affect. Course Course Emergency Course: Discussed case with Dr. Monique, would like a second troponin as symptoms do seem somewhat atypical. Unfortunately a second troponin elevating. After reconsultation of cardiology was recommended patient receive some Lovenox the admitted for observation the hospital serv
[2022-12-24 17:09] LABS: Add Urine Microscopic? NO
[2022-12-24 20:09] VITALS: BP 123/50; PULSE 71; RESP 18; O2SAT 100
[2022-12-24 20:12] LABS: Troponin I 0.047 ng/mL (0.000-0.034)
[2022-12-24] MEDS: ENOXAPARIN 100 MG/ML SYRINGE 114 MG SUB-Q (20:41)
--- NOTE | 2022-12-24 22:02 | PM.IMHP ---
H&P: HPI History of Present Illness Date/Time: 12/24/22 22:02 Chief Complaint: Not feeling good Narrative: 62-year-old female with past medical history of morbid obesity, GERD, former methamphetamine abuse and recent diagnosis of coronary artery disease with stent placed 12/13/2022 in the mid LAD who presented to the ER from her primary care physician's office for evaluation due to EKG findings can not feeling good. As I was going down to the ER to see the patient the patient had evidently just signed out AMA from the ER. Review of Systems Review of Systems: 12 systems were reviewed with pertinent positives and negatives per HPI. Except as documented in the HPI, all other systems were reviewed and are negative. [facility] Past Medical History Medical History (Updated 12/24/22 @ 22:19 by Izzy Razo DO) Aortic atherosclerosis Mild, noted on CT on 12/12/2022. CAD (coronary artery disease) Cholelithiasis Noted on CT on 12/12/2022. Gastroesophageal reflux disease History of methamphetamine use Hypertriglyceridemia Surgical History Surgical History (Updated 12/24/22 @ 22:19 by Izzy Razo DO) History of section History of heart artery stent 12/13/2022 Family History Family History Father Acute myocardial infarction Prostate carcinoma Hypertension Mother Hypertension Breast cancer Social History Social History Social History: Surrogate medical decision maker: Kamran Ledezma, son. Code status: Full code. Smoking status: Former smoker Tobacco type: cigarettes Second hand tobacco smoke exposure: No Alcohol intake: never Substance use: former Substance use type: amphetamines Lack of Transportation: No Lack of Food: Never True Current Housing: I Have Housing Concerned About Future Housing: No Difficulty Paying Gas/Electric Bills: No Difficulty Paying for Meds: No Currently Unemployed: No Education: Decline to Answer Difficulty w/ Childcare or Family Care: No Additional living arrangements comments: . Lives alone in [place]. Has 4 children. Additional occupation/education comments: Retired. Spiritual care concerns: No Agree to blood products: Yes Meds Home Medications and Allergies Home Medications Medication Instructions Recorded Confirmed Type aspirin 81 mg chewable tablet 81 mg PO DAILY@0800 #30 tabs 12/14/22 Rx (Children's Aspirin) atorvastatin 40 mg tablet 80 mg PO DAILY #60 tabs 12/14/22 Rx clopidogrel 75 mg tablet 75 mg PO QAM #30 tabs 12/14/22 Rx metoprolol succinate 25 mg 25 mg PO QAM #30 tabs 12/14/22 Rx tablet,extended release 24 hr (Toprol XL) nitroglycerin 0.4 mg sublingual 0.4 mg sublingual Q5MIN PRN Chest 12/14/22 Rx tablet (Nitrostat) Pain #20 tabs Allergies Allergy/AdvReac Type Severity Reaction Status Date / Time No Known Allergies Allergy Verified 12/24/22 15:53 Vital Signs Vital Signs - 24 hr 12/24/22 15:53 12/24/22 16:48 12/24/22 16:49 Temperature 97.6 F 97.6 F Pulse Rate 71 73 73 Respiratory Rate 16 19 19 Blood Pressure 130/67 142/66 H 142/66 H Pulse Oximetry 98 98 99 Oxygen Delivery Room Air Room Air H&P: Results Labs Labs: Laboratory Tests 12/24/22 16:11 12/24/22 16:11 12/24/22 12/24/22 12/24/22 16:11 16:11 16:11 WBC 15.3 H RBC 4.58 Hgb 13.1 Hct 39.5 MCV 86.2 MCH 28.6 MCHC 33.2 RDW 12.5 Plt Count 352 MPV 8.9 Immature Gran % (Auto) 0.7 H Neut % (Auto) 74.7 H Lymph % (Auto) 16.7 L [place] % (Auto) 6.0 Eos % (Auto) 1.5 Baso % (Auto) 0.4 Lymph # (Auto) 2.56 [place] # (Auto) 0.9 H Eos # (Auto) 0.2 Baso # (Auto) 0.1 Abs Immat Gran (auto) 0.10 H Absolute Neuts (auto) 11.4 H Absolute Nucleated RBC 0.0 Nucleated RBC % 0.0 PT 13.0 INR 1.0 APT
--- NOTE | 2022-12-24 22:08 | PC.NURSE ---
to pt's room. obtained bp and while obtaining pt's bp pt became upset and stated that the cuff was not deflating. informed pt that it was deflating and she called this RN a liar. Asked pt to please not to call me a liar and that the bp cuff is almost deflated. pt states that the bp cuff was going to kill her and that she is getting out of here because it is taking to long to get a bed upstairs. Took bp cuff off pt and pt states she is leaving. Dr. Mejia aware
[2022-12-24 22:21] LABS: Troponin I 0.047 ng/mL (0.000-0.034)
== END 2022-12-24 20:09 | disposition left against medical advice (07) ==
PROVIDERS: Emergency Provider Emergency Medicine; PCP Internal Medicine
DX: R07.89 Other chest pain (principal); R79.89 Other specified abnormal findings of blood chemistry; I25.10 Atherosclerotic heart disease of native coronary artery without angina pectoris; E78.1 Pure hyperglyceridemia; I70.0 Atherosclerosis of aorta; K21.9 Gastro-esophageal reflux disease without esophagitis; E66.01 Morbid (severe) obesity due to excess calories; Z68.41 Body mass index [BMI] 40.0-44.9, adult; Z87.891 Personal history of nicotine dependence; R94.31 Abnormal electrocardiogram [ECG] [EKG]
CPT/HCPCS: 36415; 71046; 80053; 81003; 83690; 84484; 85025; 85610; 85730; 93005; 96372; 99284; J1650

== ENCOUNTER 2023-08-13 11:22 | Emergency (ER) | payer OTHER, SELFPAY ==
[2023-08-13 11:23] VITALS: BP 153/84; PULSE 86; RESP 16; TEMP 36.6; O2SAT 98
[2023-08-13 12:18] LABS: Add Urine Microscopic? NO; Appearance Urine Clear (Clear); Bilirubin Urine Negative (Negative); Blood Urine Negative (Negative); Color Urine Yellow (Yellow); Glucose Urine UA Negative (Negative); Ketones Urine Negative (Negative); Leukocyte Esterase Ur Negative LEU/UL (Negative); Nitrate Urine Negative (Negative); Protein Urine Negative (Negative); Specific Grav Ur 1.017 (1.001-1.035); Urobilinogen Urine 0.2 mg/dL (<2.0)
[2023-08-13 12:35] VITALS: RESP 16
[2023-08-13 12:37] LABS: Amphetamine Screen Urine Negative (Negative); Barbiturate Screen Urine Negative (Negative); Benzodiazepines Screen Urine Negative (Negative); Cannabinoid Screen Urine Negative (Negative); Cocaine Screen Urine Negative (Negative); Methadone Screen Urine Negative (Negative); Opiate Screen Urine Negative (Negative); Phencyclidine Screen Urine Negative (Negative)
--- NOTE | 2023-08-13 13:18 | ED.GENADULT ---
HPI - General Adult General Chief complaint: Unspecified Stated complaint: plethora of complaints Time Seen by Provider: 08/13/23 12:37 History of Present Illness HPI narrative: 62-year-old female presenting with concerns for secondhand smoke exposure. States that some new people moved into her apartment complex and they have been smoking cigarettes and marijuana products inside their apartment. She states that the smoke is coming through her vents and she has been inhaling it all week. States that last night was particularly heavy. She is already filed complaints with the housing authorities. States that she is concerned because its been making her anxiety worse. She wants a drug test. She denies any current complaints. Related Data Allergies Allergy/AdvReac Type Severity Reaction Status Date / Time lovastatin AdvReac Numbness Verified 08/13/23 12:34 Review of Systems Review of Systems: All systems reviewed & are unremarkable except as noted in HPI and below PMFSH Past Medical History Medical History Aortic atherosclerosis Mild, noted on CT on 12/12/2022. CAD (coronary artery disease) Cholelithiasis Noted on CT on 12/12/2022. Gastroesophageal reflux disease History of methamphetamine use Hypertriglyceridemia Surgical History Surgical History History of section History of heart artery stent 12/13/2022 Family History Family History Father Acute myocardial infarction Prostate carcinoma Hypertension Mother Hypertension Breast cancer Social History Social History Social History: Surrogate medical decision maker: Kamran Ledezma, son. Code status: Full code. Smoking status: Former smoker Tobacco type: cigarettes Second hand tobacco smoke exposure: No Alcohol intake: never Substance use: former Substance use type: amphetamines Lack of Transportation: No Lack of Food: Never True Current Housing: I Have Housing Concerned About Future Housing: No Difficulty Paying Gas/Electric Bills: No Difficulty Paying for Meds: No Currently Unemployed: No Education: Decline to Answer Difficulty w/ Childcare or Family Care: No Additional living arrangements comments: . Lives alone in [place]. Has 4 children. Additional occupation/education comments: Retired. Spiritual care concerns: No Agree to blood products: Yes Exam Narrative: GENERAL: Well-appearing, in no acute distress, pleasant and cooperative HEAD: Normocephalic, atraumatic. EYES: PERRLA and EOMI. ENT: Grossly unremarkable NECK: Supple. CHEST: Clear to auscultation. No respiratory distress. No wheezing HEART: Regular rate and rhythm. ABDOMEN: Nondistended EXTREMITIES: Normal range of motion. No edema. SKIN: Warm, dry, no rash. NEURO: No focal deficits. Alert and oriented x3. PSYCH: Normal mood and affect. Course Vital Signs Vital signs: Vital Signs Temperature 97.8 F 08/13/23 11:23 Pulse Rate 86 08/13/23 11:23 Respiratory Rate 16 08/13/23 11:23 Blood Pressure 153/84 H 08/13/23 11:23 Pulse Oximetry 98 08/13/23 11:23 Temperature 97.8 F 08/13/23 11:23 Pulse Rate 86 08/13/23 11:23 Respiratory Rate 16 08/13/23 12:35 Blood Pressure 153/84 H 08/13/23 11:23 Pulse Oximetry 98 08/13/23 11:23 Medical Decision Making MDM Narrative Medical decision making narrative: 62-year-old female presenting for drug testing due to concern for smoke and THC exposure. Vital stable. Exam remarkable for the above. UA is unremarkable. Drug screen is negative. Advised that the patient try to use an air purifier to help with the quality of the air in her apartment. Advised that she continue to follow-up with the housing authoriti
== END 2023-08-13 13:27 | disposition home or self-care (01) ==
PROVIDERS: Physician Assistant; Emergency Provider Emergency Medicine; PCP Internal Medicine
DX: Z77.22 Contact with and (suspected) exposure to environmental tobacco smoke (acute) (chronic) (principal); I70.0 Atherosclerosis of aorta; I25.10 Atherosclerotic heart disease of native coronary artery without angina pectoris; E78.1 Pure hyperglyceridemia; K21.9 Gastro-esophageal reflux disease without esophagitis; Z95.5 Presence of coronary angioplasty implant and graft; Z87.891 Personal history of nicotine dependence
CPT/HCPCS: 80307; 81003; 99283